=== PATIENT | male | born 1990 | race Two or more races ===

== ENCOUNTER 2022-08-01 02:25 | Emergency (ER) | payer OTHER ==
[~2022-08-01] VITALS: Ht 170.2 cm; Wt 70.3 kg
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
[2022-08-01] MEDS ORDERED: IBUPROFEN 600 MG TABLET ONE (03:47)
[2022-08-01] MEDS ORDERED: IBUPROFEN 600 MG TABLET PO ONE (04:00)
--- NOTE | 2022-08-01 05:51 | NUR ---
PT OK TO DISCHARGE PER DR RODRIGES. Patient discharged to home in stable condition. Written and verbal after care instructions given. Patient verbalizes understanding of instruction.Patient is awake and alert to self, day, and place. PT ambulatory with a steady gait
[2022-08-01 05:52] VITALS: BP 124/65
== END 2022-08-01 05:53 | disposition home or self-care (01) ==
LOC: ER 02:27
DX: M25.512 Pain in left shoulder (principal); M54.2 Cervicalgia; V89.2XXA Person injured in unspecified motor-vehicle accident, traffic, initial encounter; Y93.89 Activity, other specified; Y92.89 Other specified places as the place of occurrence of the external cause; Y99.8 Other external cause status
CPT/HCPCS: 73030-TC